=== PATIENT | male | born 1945 | race African-American/Black ===

== ENCOUNTER 2019-01-04 19:36 | Inpatient (IN) | payer MEDICARE, MEDICAID ==
[~2019-01-04] VITALS: Ht 172.7 cm; Wt 49.6 kg
[2019-01-04 20:45] LABS: BASOPHILS % 1.2 % (0.0-2.0); EOSINOPHILS % 5.4 % (0.0-5.0); HEMATOCRIT. 35.4 % (42.0-52.0); HEMOGLOBIN. 11.8 g/dL (14.0-18.0); LYMPHOCYTES % 36.2 % (20.0-50.0); MEAN CORPUSCULAR HEMOGLOBIN 32.3 pg (28.0-32.0); MEAN CORPUSCULAR VOLUME 96.8 fL (80.0-94.0); MEAN PLATELET VOLUME 7.8 fl (7.4-10.4); MONOCYTES % 5.8 % (2.0-8.0); NEUTROPHILS % 51.4 % (40.0-76.0); PLATELET 284 x1000/uL (130-400); RED BLOOD CELL COUNT 3.66 mill/uL (4.7-6.1)
[2019-01-04 20:53] LABS: INR 1.2; PROTHROMBIN TIME 12.2 sec (9.6-11.0)
[2019-01-04 21:14] LABS: CHLORIDE 108 mEq/L (98-107)
[2019-01-04] MEDS ORDERED: ALBUTEROL (0.083%) 2.5MG/3ML NEB HHN ONE (22:30)
[2019-01-05] MEDS ORDERED: ONDANSETRON HCL 4MG/2ML INJ IV STA (01:32)
[2019-01-05] MEDS ORDERED: MORPHINE SULFATE 4 MG/ML CPJ (NOT FOR IM USE) IV STA (01:32)
[2019-01-05] MEDS ORDERED: METHYLPREDNISOLONE SOD SUCC 125 MG/2 ML VIAL IV ONE (01:45)
[2019-01-05 08:15] VITALS: BP 142/78
[2019-01-05 09:19] VITALS: BP 142/78
[2019-01-05] MEDS ORDERED: ONDANSETRON HCL 4MG/2ML INJ IV PRN (09:30)
[2019-01-05] MEDS: SPIRONOLACTONE 50MG TABLET PO SCH (09:45)
[2019-01-05] MEDS: FUROSEMIDE 40MG/4ML VIAL IVP SCH ×2 (09:45→16:16)
[2019-01-05 09:56] VITALS: BP 142/78
[2019-01-05] MEDS ORDERED: IPRATROPIUM/ALBUTEROL 0.5-3(2.5)MG/3ML NEB HHN PRN (11:45)
[2019-01-05 12:00] VITALS: BP 159/75
[2019-01-05] MEDS ORDERED: ENOXAPARIN 40MG/0.4ML SYR SUBCUT SCH (12:00)
[2019-01-05] MEDS ORDERED: LIDOCAINE HCL 1% 20ML VIAL (Pyxis) INJ ONE (12:59)
[2019-01-05] MEDS ORDERED: SODIUM BICARBONATE 4% (2.4MEQ) 5ML VIAL IV ONE (13:00)
[2019-01-05 13:05] LABS: HEPATITIS B SURFACE ANTIGEN NEGATIVE
[2019-01-05] MEDS: IPRATROPIUM/ALBUTEROL 0.5-3(2.5)MG/3ML NEB HHN SCH ×3 (13:13→20:35)
[2019-01-05 13:35] LABS: HEPATITIS A AB IGM NEGATIVE (NEGATIVE)
[2019-01-05 15:17] LABS: CLARITY URINE CLEAR (CLEAR); COLOR URINE YELLOW (YELLOW); KETONES URINE NEGATIVE (NEGATIVE); LEUKOCYTE ESTERASE URINE NEGATIVE (NEGATIVE); NITRITE URINE NEGATIVE (NEGATIVE); OCCULT BLOOD URINE NEGATIVE (NEGATIVE); PROTEIN URINE NEGATIVE (NEGATIVE); SPECIFIC GRAVITY URINE 1.007 (1.005-1.030); UROBILINOGEN URINE 0.2 E.U./dL (0.2-1.0)
[2019-01-05 16:00] VITALS: BP 115/60
[2019-01-05] MEDS: METHYLPREDNISOLONE SOD SUCC 40 MG/ML VIAL IV SCH ×2 (16:16→21:09)
[2019-01-05 20:00] VITALS: BP 97/54
[2019-01-06] VITALS: BP 100/49
[2019-01-06 04:00] VITALS: BP 111/58
[2019-01-06] MEDS: IPRATROPIUM/ALBUTEROL 0.5-3(2.5)MG/3ML NEB HHN SCH ×6 (05:00→21:30)
[2019-01-06] MEDS: FUROSEMIDE 40MG TABLET PO SCH ×2 (06:34→16:48)
[2019-01-06 08:00] VITALS: BP 137/79
[2019-01-06] MEDS: PREDNISONE 20MG TABLET PO SCH (09:13)
[2019-01-06] MEDS: SPIRONOLACTONE 50MG TABLET PO SCH (09:13)
[2019-01-06 10:20] LABS: *AMPHETAMINES SCREEN URINE NEGATIVE (NEGATIVE); *BARBITURATES SCREEN URINE NEGATIVE (NEGATIVE); *BENZODIAZEPINES SCREEN URINE NEGATIVE (NEGATIVE); *COCAINE SCREEN URINE NEGATIVE (NEGATIVE); CANNABINOID URINE SCREEN NEGATIVE (NEGATIVE)
[2019-01-06 10:22] LABS: METHADONE URINE SCREEN NEGATIVE (NEGATIVE); OPIATES URINE SCREEN PRESUMTIVE POSITIVE (NEGATIVE); PHENCYCLIDINE URINE SCREEN NEGATIVE (NEGATIVE)
[2019-01-06] MEDS: ACETAMINOPHEN 325MG TABLET PO PRN ×2 (10:47→16:48)
[2019-01-06] MEDS ORDERED: ONDANSETRON HCL 4MG TABLET PO PRN (11:00)
[2019-01-06 12:00] VITALS: BP 133/74
[2019-01-06 16:00] VITALS: BP 104/59
[2019-01-06] MEDS ORDERED: METOCLOPRAMIDE HCL 10MG/2ML VIAL IM NR (17:45)
[2019-01-06] MEDS ORDERED: ACETAMINOPHEN 650MG SUPP PR PRN (17:45)
[2019-01-06 20:31] VITALS: BP 141/77
[2019-01-07] VITALS (7 sets, daily range): BP systolic 95–107; BP diastolic 53–64
[2019-01-07] MEDS: IPRATROPIUM/ALBUTEROL 0.5-3(2.5)MG/3ML NEB HHN SCH ×5 (04:16→23:50)
[2019-01-07] MEDS: FUROSEMIDE 40MG TABLET PO SCH ×2 (05:26→18:06)
[2019-01-07] MEDS: ACETAMINOPHEN 325MG TABLET PO PRN (05:35)
[2019-01-07] MEDS: PREDNISONE 20MG TABLET PO SCH (07:50)
[2019-01-07] MEDS: SPIRONOLACTONE 50MG TABLET PO SCH (09:00)
[2019-01-07] MEDS ORDERED: SORBITOL 70% SOLN 30ML PO NR (14:51)
[2019-01-08 00:18] VITALS: BP 100/59
[2019-01-08] MEDS: ACETAMINOPHEN 325MG TABLET PO PRN (03:27)
[2019-01-08 04:00] VITALS: BP 114/68
[2019-01-08] MEDS: FUROSEMIDE 40MG TABLET PO SCH ×2 (05:37→18:00)
[2019-01-08] MEDS: PREDNISONE 20MG TABLET PO SCH ×3 (07:50→09:04)
[2019-01-08 08:14] VITALS: BP 105/68
[2019-01-08] MEDS: SPIRONOLACTONE 50MG TABLET PO SCH (08:56)
[2019-01-08] MEDS: IPRATROPIUM/ALBUTEROL 0.5-3(2.5)MG/3ML NEB HHN SCH ×2 (12:06→20:00)
[2019-01-08 12:13] VITALS: BP 111/68
[2019-01-08 16:00] VITALS: BP 94/52
[2019-01-08 20:53] VITALS: BP 104/58
[2019-01-09 00:41] VITALS: BP 104/61
[2019-01-09] MEDS: ACETAMINOPHEN 325MG TABLET PO PRN ×2 (01:35→18:47)
[2019-01-09] MEDS: IPRATROPIUM/ALBUTEROL 0.5-3(2.5)MG/3ML NEB HHN SCH ×6 (03:33→23:45)
[2019-01-09 04:00] VITALS: BP 102/50
[2019-01-09] MEDS: FUROSEMIDE 40MG TABLET PO SCH ×2 (05:05→18:00)
[2019-01-09] MEDS: SPIRONOLACTONE 50MG TABLET PO SCH (07:30)
[2019-01-09 08:00] VITALS: BP 110/67
[2019-01-09 12:00] VITALS: BP 101/58
[2019-01-09 16:00] VITALS: BP 107/65
[2019-01-09 17:31] LABS: BASOPHILS % 0.3 % (0.0-2.0); EOSINOPHILS % 2.6 % (0.0-5.0); HEMATOCRIT. 33.6 % (42.0-52.0); HEMOGLOBIN. 11.3 g/dL (14.0-18.0); LYMPHOCYTES % 22.3 % (20.0-50.0); MEAN CORPUSCULAR VOLUME 94.8 fL (80.0-94.0); MEAN PLATELET VOLUME 8.1 fl (7.4-10.4); MONOCYTES % 5.3 % (2.0-8.0); NEUTROPHILS % 69.5 % (40.0-76.0); PLATELET 240 x1000/uL (130-400); RED BLOOD CELL COUNT 3.54 mill/uL (4.7-6.1); RED CELL DISTRIBUTION WIDTH 14.2 % (11.6-14.6)
[2019-01-09 17:33] LABS: CHLORIDE 95 mEq/L (98-107)
[2019-01-09] MEDS ORDERED: POTASSIUM CHLORIDE 20MEQ TABLET SR PO NR (18:30)
[2019-01-09] MEDS: MAGNESIUM OXIDE 400MG TABLET PO SCH (18:30)
[2019-01-09 20:00] VITALS: BP 99/57
[2019-01-10] VITALS: BP 111/68
[2019-01-10] MEDS: IPRATROPIUM/ALBUTEROL 0.5-3(2.5)MG/3ML NEB HHN SCH ×2 (03:55→07:40)
[2019-01-10 04:00] VITALS: BP 115/65
[2019-01-10] MEDS: FUROSEMIDE 40MG TABLET PO SCH ×2 (05:23→05:25)
[2019-01-10] MEDS: ACETAMINOPHEN 325MG TABLET PO PRN (07:47)
[2019-01-10] MEDS: MAGNESIUM OXIDE 400MG TABLET PO SCH (08:15)
[2019-01-10] MEDS: SPIRONOLACTONE 50MG TABLET PO SCH (08:15)
[2019-01-10 08:35] VITALS: BP 94/56
[2019-01-10] MEDS ORDERED: POTASSIUM CHLORIDE 20MEQ TABLET SR PO SCH (11:00)
[2019-01-10 11:25] VITALS: BP 98/59
[2019-01-10 12:00] VITALS: BP 106/64
[2019-01-10 12:12] VITALS: BP 106/64
== END 2019-01-10 12:45 | disposition home or self-care (01) | DRG 280 ==
LOC: ER 19:36 → 6WST 01-05 01:33 → EDBEDREQTM 01-05 01:36 → EDBEDREQ 01-05 01:36 → ENRESERV 01-05 07:05
PROVIDERS: ADMIT Internal Medicine; ATTEND Internal Medicine
PROC: 0W9G3ZZ Drainage of Peritoneal Cavity, Percutaneous Approach (ICD-10-PCS; principal; 2019-01-05)
DX: K74.60 Unspecified cirrhosis of liver (principal); K70.9 Alcoholic liver disease, unspecified; E43 Unspecified severe protein-calorie malnutrition; I47.2 Ventricular tachycardia; E87.8 Other disorders of electrolyte and fluid balance, not elsewhere classified; R18.8 Other ascites; D64.9 Anemia, unspecified; E83.42 Hypomagnesemia; J44.1 Chronic obstructive pulmonary disease with (acute) exacerbation; I10 Essential (primary) hypertension; F17.210 Nicotine dependence, cigarettes, uncomplicated; E87.6 Hypokalemia; F10.10 Alcohol abuse, uncomplicated; R64 Cachexia; I25.2 Old myocardial infarction; Z91.19 Patient's noncompliance with other medical treatment and regimen; Z71.6 Tobacco abuse counseling
CPT/HCPCS: 36415; 49083; 71045; 74018; 74176; 80048; 80305; 81003; 83735; 83880; 84484; 86705; 86709; 86803; 87340; 93005; 93306; 93970; 94640; 96374; 97162; 99285; J1650; J1940; J2270; J2405; J2920; J2930; J3490; J7512; J7611; J7620; Q0162